=== PATIENT | female | born 1930 | race African-American/Black ===

== ENCOUNTER 2020-04-16 16:17 | Inpatient (IN) | payer MEDICARE ==
[~2020-04-16] VITALS: Ht 152.4 cm; Wt 72.0 kg
[~2020-04-16 16:17] MED LIST: CHOL2000 PO; CITA10TA4 PO
--- NOTE | 2020-04-16 17:22 | PHYS DOC ---
Past Medical History Past Medical History: Hypertension, Other Additional Past Medical Histor: Alzheimers, Borderline DM Past Surgical History: Other Additional Past Surgical Histo: unkown Smoking Status: Never Smoker Alcohol Use: None Drug Use: None General Adult EDM: Chief Complaint: ALTERED MENTAL STATUS HPI: HPI: The history was obtained from the patient's son. Patient is a 89-year-old female with PMH hypertension who presents with a chief complaint of altered mental status. Son states he checked on the patient approximate 4 hours prior to arrival. He states he found her at home slumped over her bed railing. He states that the daughter does live with the patient 07/03. He states the patient's last known well was approximately 10 hours prior to arrival. He is unsure whether she had any falls or head trauma but does note some right maxillary swelling. States that she seems more confused than normal. He denies history of urinary tract infections. States she only takes medicine for high blood pressure. States she does normally ambulate on her own. Denies fevers. Denies cough. Denies known exposure to coronavirus. Denies any history of stroke. States that she was able to move both of her legs at the house so he is low suspicion for hip fracture. No other complaints per patient son at this time. Review of Systems: Review of Systems: Constitutional: Denies fever or chills. [] Eyes: Denies change in visual acuity. [] HENT: Denies nasal congestion or sore throat. [] Respiratory: Denies cough or shortness of breath. [] Cardiovascular: Denies chest pain or edema. [] GI: Denies abdominal pain, nausea, vomiting, bloody stools or diarrhea. [] : Denies dysuria. [] Musculoskeletal: Denies back pain or joint pain. [] Integument: Denies rash. [] Neurologic: Positive for confusion Endocrine: Denies polyuria or polydipsia. [] Lymphatic: Denies swollen glands. [] Psychiatric: Denies depression or anxiety. [] Heart Score: HEART Score for Chest Pain: HEART Score for Chest Pain Response (Comments) Value History Slighlty/Non-Suspicious 0 ECG Nonspecific Repolarizatio 1 Age > 65 2 Risk Factors 1 or 2 Risk Factors 1 Troponin >1-<3x Normal Limit 1 Total 5 Risk Factors: Risk Factors: DM, Current or recent (<one month) smoker, HTN, HLP, family history of CAD, obesity. Risk Scores: Score 0 - 3: 2.5% MACE over next 6 weeks - Discharge Home Score 4 - 6: 20.3% MACE over next 6 weeks - Admit for Clinical Observation Score 7 - 10: 72.7% MACE over next 6 weeks - Early Invasive Strategies Allergies: Allergies: Allergies Coded Allergies Type Severity Reaction Last Updated Verified No Known Drug Allergies 07/19/15 No Physical Exam: PE: Constitutional: Well developed, well nourished, no acute distress, non-toxic appearance. [] HENT: Normocephalic, atraumatic, bilateral external ears normal, oropharynx moist, no oral exudates, nose normal. [] Eyes: PERRLA, EOMI, conjunctiva normal, no discharge. [] Neck: Normal range of motion, no tenderness, supple, no stridor. [] Cardiovascular:Heart rate regular rhythm, no murmur [] Lungs & Thorax: Bilateral breath sounds clear to auscultation [] Abdomen:, soft, no tenderness, no masses, no pulsatile masses. [] Skin: Warm, dry, no erythema, no rash. [] Back: No tenderness, no CVA tenderness. [] Extremities: No tenderness, no cyanosis, no clubbing, ROM intact, no edema. [] Neurologic: Alert. Oriented to person only. Baseline per son no aphasia, dysarthria, or neglect. GCS 14. Pupils 3 mm briskly reactive b/l. No APD present. Cranial nerves 2-12 grossly intact; no facial asymmetry present, tongue midline, shoulder shrugging strength intact. Strength 4/5 and symmetric throughout. Light touch sensation intact throughout. Cerebellar testing appropriate without evidence of dysdiadochokinesia. DTR's 2+ in all 4 extremities. Negative pronator drift bilaterally. Gait deferred Psychologic: Affect normal, judgement normal, mood normal. [] Current Patient Data: Vital Signs: Vital Signs Date Time Temp Pulse Resp B/P (MAP) Pulse Ox O2 Delivery O2 Flow Rate FiO2 04/16/20 16:40 98.5 72 18 183/84 (117) 96 Room Air 98.5 EKG: EKG: EKG consistent with normal sinus rhythm. Ventricular rate is 74 bpm. [place] normal. Flipped T waves noted in the precordial leads. No ST segment elevation appreciated. No elevation in aVR. Similar to previous EKG from July 19, 2015. [] Radiology/Procedures: Radiology/Procedures: [] Course & Med Decision Making: Course & Med Decision Making Pertinent Labs and Imaging studies reviewed. (See chart for details) Patient is an 89-year-old female presents with chief complaint of altered mental status. Initial vital signs grossly unremarkable. Exam noted above. EKG without acute ischemic changes. Patient does have an elevated troponin in the setting of normal kidney function. No previous for comparison. EKG does not show any STEMI criteria. This could be NSTEMI related. Cardiology is been consulted. Heparinization will be administered given she has no anemia and a detectable troponin. Aspirin administered. She will require hospitalization for further work-up. Al Disclaimer: Al Disclaimer: This electronic medical record was generated, in whole or in part, using a voice recognition dictation system. Departure Departure Impression: Primary Impression: Altered mental status Qualified Codes: R41.82 - Altered mental status, unspecified Additional Impression: Elevated troponin Disposition: ADMITTED INPATIENT Condition: STABLE Referrals: Liliane PIKN MD (PCP) Justicifation of Admission Dx: Justifications for Admission: Justification of Admission Dx: Yes Hypertension: [place] Worsening of Sym DAGO BEASLEY DO Apr 16, 2020 17:22
[2020-04-16 17:26] LABS: BASO # 0.1 x10^3/uL (0.0-0.2); BASO % 1 % (0-3); EOS % 0 % (0-3); HEMOGLOBIN 14.1 g/dL (12.0-15.5); LYMPH # 1.2 x10^3/uL (1.0-4.8); LYMPH % 12 % (24-48); MEAN CORPUSCULAR HEMOGLOBIN 31 pg (25-35); MEAN CORPUSCULAR HGB CONC 34 g/dL (31-37); MEAN CORPUSCULAR VOLUME 93 fL (79-100); MONO # 0.9 x10^3/uL (0.0-1.1); MONO % 9 % (0-9); NEUT % 78 % (31-73); PLATELET COUNT 214 x10^3/uL (140-400); RED BLOOD COUNT 4.52 x10^6/uL (3.50-5.40); RED CELL DISTRIBUTION WIDTH 13.8 % (11.5-14.5); WHITE BLOOD COUNT 10.2 x10^3/uL (4.0-11.0)
[2020-04-16 17:43] LABS: BILIRUBIN,URINE NEGATIVE (NEG); CLARITY,URINE CLEAR; COLOR,URINE YELLOW; NITRITE,URINE NEGATIVE (NEG); PH,URINE 5.5 (<5.0-8.0); PROTEIN,URINE NEGATIVE (NEG-TRACE); UROBILINOGEN,URINE 0.2 mg/dL (0.2 mg/dL)
[2020-04-16 17:50] LABS: BACTERIA,URINE FEW /HPF (0-FEW); SQUAMOUS EPITHELIAL CELL,UR MOD /LPF; WBC,URINE OCC /HPF (0-4)
[2020-04-16 17:52] LABS: RBC,URINE RARE /HPF (0-2)
--- NOTE | 2020-04-16 17:56 | RAD ---
Exam: Chest one view INDICATION: Altered mental status TECHNIQUE: Frontal view of the chest Comparisons: 07/19/2015 FINDINGS: The cardiomediastinal silhouette and pulmonary vessels are within normal limits. The lung and pleural spaces are clear. IMPRESSION: No acute cardiopulmonary process. Electronically signed by: Hawk Alexandre MD (04/16/2020 5:54 PM) [id number]
[2020-04-16 18:04] LABS: CALCIUM 8.2 mg/dL (8.5-10.1); GFR 63.5; POTASSIUM 3.4 mmol/L (3.5-5.1)
[2020-04-16 18:10] LABS: ALBUMIN 3.1 g/dL (3.4-5.0); ALBUMIN/GLOBULIN RATIO 0.7 (1.0-1.7); TOTAL BILIRUBIN 0.3 mg/dL (0.2-1.0); TOTAL PROTEIN 7.4 g/dL (6.4-8.2)
--- NOTE | 2020-04-16 18:28 | RAD ---
CT head without contrast: Reason for examination: Altered mental status. Comparison is made to previous study dated 04/08/2011. Axial images were obtained through the brain. No contrast was administered. Reconstruction was performed in and coronal plane. Exposure: One or more of the following individualized dose reduction techniques were utilized for this examination: 1. Automated exposure control 2. Adjustment of the mA and/or kV according to patient size 3. Use of iterative reconstruction technique. Ventricular systems are symmetric but mildly prominent consistent with the patient's advanced age and cerebral atrophy. No midline shift is seen. There are moderate patchy deep white matter changes in the frontal and parietal lobes consistent with microvascular ischemia. There is a small chronic appearing lacunar infarct in the left thalamus. No acute infarcts, masses or edema are seen. No abnormalities of seen at the orbits. 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 Remaining paranasal sinuses appear to be relatively clear. Mastoid air cells are clear. No acute abnormality seen in the calvarium. IMPRESSION: Moderate microvascular ischemic changes in the frontal and parietal lobes. Small chronic appearing lacunar infarct in the left thalamus. No acute intracranial abnormality evident. Electronically signed by: Vanna King MD (04/16/2020 6:25 PM) MARIANNE
[2020-04-16] MEDS ORDERED: IV NORMAL SALINE 1000ML BAG 1,000 ML IV ONE (19:30)
[2020-04-16] MEDS ORDERED: ASPIRIN CHEWABLE 81 MG TABLET. PO ONE (22:30)
[2020-04-16] MEDS ORDERED: HEPARIN for IV BOLUS 10,000 UNIT/10 ML VIAL. IV ONE (22:30)
[2020-04-16 23:00] VITALS: BP 178/62
[2020-04-16] MEDS ORDERED: OMEP20TA8 PO (23:34)
[2020-04-16] MEDS ORDERED: AMLO5TAB10 PO (23:34)
[2020-04-16] MEDS ORDERED: IBUP-1007 PO (23:34)
--- NOTE | 2020-04-17 | NUR ---
Patient, Cristela Larson, admitted to [id number], accompanied by son , ALTRICIA, A/O, drowsy, plan of care discussed with pt and son, bed alarm engaged, son took wallet home with him, left cane and shoes.
--- NOTE | 2020-04-17 | NUR ---
Patient to floor with reported 2nd bag of ns bolus, not noted to have been scanned, but is infusing/bolusing
[2020-04-17 03:00] VITALS: BP 169/71
--- NOTE | 2020-04-17 06:09 | EKG ---
[facility] [address] [place] [address] Test Date: 2020-04-16 Test Time: 17:03:24 Pat Name: JAYCE BROWN Department: Room: Gender: F Marketing Officer: : 1930 Requested By: DAGO BEASLEY Order Number: [id number] Reading MD: Measurements Intervals [place] Rate: 74 P: 22 TN: 144 QRS: 14 QRSD: 74 T: 114 QT: 412 QTc: 458 Interpretive Statements SINUS RHYTHM LVH WITH REPOLARIZATION ABNORMALITY ABNORMAL ECG RI6.02 No previous ECG available for comparison
[2020-04-17 07:00] VITALS: BP 181/75
--- NOTE | 2020-04-17 08:55 | PDOC1 ---
History and Physical Date of Admission Date of Admission DATE: 04/17/20 TIME: 08:53 Identification/Chief Complaint Chief Complaint Altered mental status Source Source: Caregiver, Chart review, Patient History of Present Illness History of Present Illness Ms Larson is a 89 yo F w/ PMHx hypertension, Alzheimers dementia, prior left thalamic CVA who presents to [facility] ED on 04/16 with a chief complaint of altered mental status per son. Son states he checked on the patient approximate 4 hours prior to arrival. He states he found her at home slumped over her bed railing. He states that the daughter does live with the patient 07/03. He states the patient's last known well was approximately 10 hours prior to arrival. He is unsure whether she had any falls or head trauma but does note some right maxillary swelling. States that she seems more confused than normal, but did not have any pain complaints. He denies history of urinary tract infections. States she only takes medicine for high blood pressure. States she does normally ambulate on her own. Denies fevers. Denies cough. Denies known exposure to coronavirus. Denies any history of stroke. No other complaints per patient son at this time. EKG appears normal sinus rhythm. Ventricular rate is 74 bpm. [place] normal. Flipped T waves noted in the precordial leads. No ST segment elevation appreciated. No elevation in aVR. Similar to previous EKG from July 19, 2015. Labs significant for WBC 10.2, Hb 14.1, platelets 214, lactic acid 2.3, NA 140, K3.4, BUN 9, CR 1, glucose 129, CK 676, BNP 561, albumin 3.1, troponin 0.127. UA bland Admitted for further treatment. Past Medical History CENTRAL NERVOUS SYSTEM: CVA, Dementia Past Surgical History Past Surgical History: Other Family History Family History: High Cholestrol, Hypertension Current Problem List Problem List Problems Medical Problems: (1) Altered mental status Status: Acute (2) Elevated troponin Status: Acute Current Medications Current Medications Current Medications Sodium Chloride 1,000 ml @ 1,000 mls/hr 1X ONCE IV Last administered on 04/16/20at 19:30; Start 04/16/20 at 19:30; Stop 04/16/20 at 20:29; Status DC Heparin Sodium (Porcine) (Heparin Sodium) 4,000 unit 1X ONCE IV Last administered on 04/17/20at 02:07; Start 04/16/20 at 22:30; Stop 04/16/20 at 22:33; Status DC Aspirin (Aspirin Chewable) 324 mg 1X ONCE PO Last administered on 04/17/20at 02:07; Start 04/16/20 at 22:30; Stop 04/16/20 at 22:33; Status DC Active Scripts Active Reported Omeprazole 20 Mg Tablet.dr 1 Tab PO DAILY Ibuprofen 600 Mg Tablet 600 Mg PO DAILY PRN Amlodipine Besylate 5 Mg Tablet 5 Mg PO DAILY Vitamin D (Cholecalciferol (Vitamin D3)) 2,000 Unit Capsule 5,000 Unit PO Allergies Allergies: Coded Allergies: No Known Drug Allergies (Unverified , 07/19/15) ROS Review of System Unable to obtain due to altered mental status also with dementia, not verbally interactive Physical Exam General: Cooperative, No acute distress HEENT: Atraumatic, PERRLA, EOMI, Mucous membr. moist/pink Lungs: Clear to auscultation, Normal air movement Heart: S1S2, RRR, no thrills, no rubs, no gallops, no murmurs Rectal Exam: not examined Extremities: No clubbing, No cyanosis, No edema, Normal pulses, No tenderness/swelling Skin: No rashes, No breakdown, No significant lesion Neuro: Normal speech, Strength at 5/5 X4 ext, Normal tone, Sensation intact, Cranial nerves 3-12 NL, Reflexes 2+ Psych/Mental Status: Other (Confused) Vitals Vitals Vital Signs Date Time Temp Pulse Resp B/P (MAP) Pulse Ox O2 Delivery O2 Flow Rate FiO2 04/17/20 03:00 98.6 69 169/71 (103) 99 98.6 04/16/20 22:48 18 Room Air Labs Labs Laboratory Tests Test 04/16/20 17:15 04/16/20 17:28 04/16/20 17:40 04/16/20 23:30 White Blood Count 10.2 x10^3/uL (4.0-11.0) Red Blood Count 4.52 x10^6/uL (3.50-5.40) Hemoglobin 14.1 g/dL (12.0-15.5) Hematocrit 42.0 % (36.0-47.0) Mean Corpuscular Volume 93 fL (79-100) Mean Corpuscular Hemoglobin 31 pg (25-35) Mean Corpuscular Hemoglobin Concent 34 g/dL (31-37) Red Cell Distribution Width 13.8 % (11.5-14.5) Platelet Count 214 x10^3/uL (140-400) Neutrophils (%) (Auto) 78 % (31-73) Lymphocytes (%) (Auto) 12 % (24-48) Monocytes (%) (Auto) 9 % (0-9) Eosinophils (%) (Auto) 0 % (0-3) Basophils (%) (Auto) 1 % (0-3) Neutrophils # (Auto) 8.0 x10^3/uL (1.8-7.7) Lymphocytes # (Auto) 1.2 x10^3/uL (1.0-4.8) Monocytes # (Auto) 0.9 x10^3/uL (0.0-1.1) Eosinophils # (Auto) 0.0 x10^3/uL (0.0-0.7) Basophils # (Auto) 0.1 x10^3/uL (0.0-0.2) Lactic Acid Level 2.3 mmol/L (0.4-2.0) 1.9 mmol/L (0.4-2.0) Urine Collection Type U cath Urine Color Yellow Urine Clarity Clear Urine pH 5.5 (<5.0-8.0) Urine Specific [place] 1.010 (1.000-1.030) Urine Protein Negative mg/dL (NEG-TRACE) Urine Glucose (UA) Negative mg/dL (NEG) Urine Ketones (Stick) Negative mg/dL (NEG) Urine Blood Moderate (NEG) Urine Nitrite Negative (NEG) Urine Bilirubin Negative (NEG) Urine Urobilinogen Dipstick 0.2 mg/dL (0.2 mg/dL) Urine Leukocyte Esterase Negative (NEG) Urine RBC Rare /HPF (0-2) Urine WBC Occ /HPF (0-4) Urine Squamous Epithelial Cells Mod /LPF Urine Transitional Epithelial Cells Occ /LPF Urine Bacteria Few /HPF (0-FEW) Urine Mucus Marked /LPF Sodium Level 140 mmol/L (136-145) Potassium Level 3.4 mmol/L (3.5-5.1) Chloride Level 105 mmol/L (98-107) Carbon Dioxide Level 27 mmol/L (21-32) Anion Gap 8 (6-14) Blood Urea Nitrogen 9 mg/dL (7-20) Creatinine 1.0 mg/dL (0.6-1.0) Estimated GFR (Cockcroft-Gault) 63.5 BUN/Creatinine Ratio 9 (6-20) Glucose Level 129 mg/dL (70-99) Calcium Level 8.2 mg/dL (8.5-10.1) Total Bilirubin 0.3 mg/dL (0.2-1.0) Aspartate Amino Transf (AST/SGOT) 30 U/L (15-37) Alanine Aminotransferase (ALT/SGPT) 23 U/L (14-59) Alkaline Phosphatase 51 U/L (46-116) Creatine Kinase 676 U/L (26-192) Troponin I Quantitative 0.127 ng/mL (0.000-0.055) 0.114 ng/mL (0.000-0.055) LB-Thj-Q-Type Natriuretic Peptide 561 pg/mL (0-449) Total Protein 7.4 g/dL (6.4-8.2) Albumin 3.1 g/dL (3.4-5.0) Albumin/Globulin Ratio 0.7 (1.0-1.7) Lipase 69 U/L (73-393) Test 04/17/20 03:00 04/17/20 04:15 Troponin I Quantitative 0.109 ng/mL (0.000-0.055) 0.099 ng/mL (0.000-0.055) Laboratory Tests Test 04/16/20 17:15 04/16/20 17:28 04/16/20 17:40 04/16/20 23:30 White Blood Count 10.2 x10^3/uL (4.0-11.0) Red Blood Count 4.52 x10^6/uL (3.50-5.40) Hemoglobin 14.1 g/dL (12.0-15.5) Hematocrit 42.0 % (36.0-47.0) Mean Corpuscular Volume 93 fL (79-100) Mean Corpuscular Hemoglobin 31 pg (25-35) Mean Corpuscular Hemoglobin Concent 34 g/dL (31-37) Red Cell Distribution Width 13.8 % (11.5-14.5) Platelet Count 214 x10^3/uL (140-400) Neutrophils (%) (Auto) 78 % (31-73) Lymphocytes (%) (Auto) 12 % (24-48) Monocytes (%) (Auto) 9 % (0-9) Eosinophils (%) (Auto) 0 % (0-3) Basophils (%) (Auto) 1 % (0-3) Neutrophils # (Auto) 8.0 x10^3/uL (1.8-7.7) Lymphocytes # (Auto) 1.2 x10^3/uL (1.0-4.8) Monocytes # (Auto) 0.9 x10^3/uL (0.0-1.1) Eosinophils # (Auto) 0.0 x10^3/uL (0.0-0.7) Basophils # (Auto) 0.1 x10^3/uL (0.0-0.2) Lactic Acid Level 2.3 mmol/L (0.4-2.0) 1.9 mmol/L (0.4-2.0) Urine Collection Type U cath Urine Color Yellow Urine Clarity Clear Urine pH 5.5 (<5.0-8.0) Urine Specific [place] 1.010 (1.000-1.030) Urine Protein Negative mg/dL (NEG-TRACE) Urine Glucose (UA) Negative mg/dL (NEG) Urine Ketones (Stick) Negative mg/dL (NEG) Urine Blood Moderate (NEG) Urine Nitrite Negative (NEG) Urine Bilirubin Negative (NEG) Urine Urobilinogen Dipstick 0.2 mg/dL (0.2 mg/dL) Urine Leukocyte Esterase Negative (NEG) Urine RBC Rare /HPF (0-2) Urine WBC Occ /HPF (0-4) Urine Squamous Epithelial Cells Mod /LPF Urine Transitional Epithelial Cells Occ /LPF Urine Bacteria Few /HPF (0-FEW) Urine Mucus Marked /LPF Sodium Level 140 mmol/L (136-145) Potassium Level 3.4 mmol/L (3.5-5.1) Chloride Level 105 mmol/L (98-107) Carbon Dioxide Level 27 mmol/L (21-32) Anion Gap 8 (6-14) Blood Urea Nitrogen 9 mg/dL (7-20) Creatinine 1.0 mg/dL (0.6-1.0) Estimated GFR (Cockcroft-Gault) 63.5 BUN/Creatinine Ratio 9 (6-20) Glucose Level 129 mg/dL (70-99) Calcium Level 8.2 mg/dL (8.5-10.1) Total Bilirubin 0.3 mg/dL (0.2-1.0) Aspartate Amino Transf (AST/SGOT) 30 U/L (15-37) Alanine Aminotransferase (ALT/SGPT) 23 U/L (14-59) Alkaline Phosphatase 51 U/L (46-116) Creatine Kinase 676 U/L (26-192) Troponin I Quantitative 0.127 ng/mL (0.000-0.055) 0.114 ng/mL (0.000-0.055) DT-Voy-N-Type Natriuretic Peptide 561 pg/mL (0-449) Total Protein 7.4 g/dL (6.4-8.2) Albumin 3.1 g/dL (3.4-5.0) Albumin/Globulin Ratio 0.7 (1.0-1.7) Lipase 69 U/L (73-393) Test 04/17/20 03:00 04/17/20 04:15 Troponin I Quantitative 0.109 ng/mL (0.000-0.055) 0.099 ng/mL (0.000-0.055) Images Images CT head: Ventricular systems are symmetric but mildly prominent consistent with the patient's advanced age and cerebral atrophy. No midline shift is seen. There are moderate patchy deep white matter changes in the frontal and parietal lobes consistent with microvascular ischemia. There is a small chronic appearing lacunar infarct in the left thalamus. No acute infarcts, masses or edema are seen. No abnormalities of seen at the orbits. 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 Remaining paranasal sinuses appear to be relatively clear. Mastoid air cells are clear. No acute abnormality seen in the calvarium. IMPRESSION: Moderate microvascular ischemic changes in the frontal and parietal lobes. Small chronic appearing lacunar infarct in the left thalamus. No acute intracranial abnormality evident. CXR: The cardiomediastinal silhouette and pulmonary vessels are within normal limits. The lung and pleural spaces are clear. IMPRESSION: No acute cardiopulmonary process. VTE Prophylaxis Ordered VTE Prophylaxis Devices: Yes VTE Pharmacological Prophylaxi: Yes Assessment/Plan Assessment/Plan A/P: Acute metabolic encephalopathy - likely from metabolic derangement, no UTI or other abnormalities Elevated troponin - likely demand ischemia from above. Will trend. Cardiology consulted in ED. No STEMI. On heparin GTT Lactic acid elevated - will trend Hypokalemia - will correct, check mag Elevated CPK - will hydrate Remote left thalamic CVA - family not aware of prior CVA Alzheimers dementia - not on meds HTN - cont home meds FEN - Cardiac diet PPX - Heparin DNR/DNI Dispo - inpatient for above Justifications for Admission Other Justification VIRIDIANA FUNEZ MD Apr 17, 2020 08:55
--- NOTE | 2020-04-17 09:15 | PDOC2 ---
CARDIAC CONSULT DATE OF CONSULT Date of Consult DATE: 04/17/20 TIME: 09:12 REASON FOR CONSULT Reason for Consult: Elevated troponin REFERRING PHYSICIAN Referring Physician: Jojo SOURCE Source: Caregiver (son), Chart review, Patient HISTORY OF PRESENT ILLNESS HISTORY OF PRESENT ILLNESS This is a pleasant 89 yo female admitted for noted increasing confusion. She is alert and oriented to self and place and pleasant. She appears back to her baseline and has Alzheimers but unclear to what degree. I discussed this with his son whose daughter helps takes care of her. They notice that her confusion got worse and also noted at one point the other day that she may have fell and hit her right face on something as she was noted with bruising. It is unclear if she truly and how hard she fell and if she passed out. She was seen trying to pour her drink to her food. He thought she has another UTI. No hx of arrhythmias or CADs. She does have DM2 but is in no medications and was stopped a while back. He could not ascertain her hydration and likely was dehydrated to begin with. No complains of chest pain, SOA and has not been seen touching her chest or any indications of pain. PAST MEDICAL HISTORY Cardiovascular: HTN Pulmonary: Asthma CENTRAL NERVOUS SYSTEM: Dementia (alzheimers) GI: GERD, Other (H pylori) Psych: Depression Musculoskeletal: Osteoarthritis, Other (Vit D deficicny) ENT: Other (glaucoma) Renal/: UTI Endocrine: Diabetes (2 and diet controlled) PAST SURGICAL HISTORY Past Surgical History: Cataract Removal, Hysterectomy FAMILY HISTORY Family History noncontributory to CV SOCIAL HISTORY Smoke: No ALCOHOL: none Drugs: None Lives: with Family CURRENT MEDICATIONS CURRENT MEDICATIONS Current Medications Medications (Trade) Dose Ordered Sig/Nubia Route PRN Reason Start Time Stop Time Status Last Admin Dose Admin Sodium Chloride 1,000 ml @ 1,000 mls/hr 1X ONCE IV 04/16/20 19:30 04/16/20 20:29 DC 04/16/20 19:30 Heparin Sodium (Porcine) (Heparin Sodium) 4,000 unit 1X ONCE IV 04/16/20 22:30 04/16/20 22:33 DC 04/17/20 02:07 Aspirin (Aspirin Chewable) 324 mg 1X ONCE PO 04/16/20 22:30 04/16/20 22:33 DC 04/17/20 02:07 ALLERGIES ALLERGIES: Coded Allergies: No Known Drug Allergies (Unverified , 07/19/15) ROS Review of System 14 point ROS evaluated with pertinent positives noted per HPI PHYSICAL EXAM General: Alert, Oriented X3, Cooperative, No acute distress HEENT: Atraumatic, Mucous membr. moist/pink, Other (right facial ecchymoses) Lungs: Clear to auscultation, Normal air movement Heart: Regular rate (SR no ectopies), Normal S1, Normal S2, Other (3/6 systolic murmur to LLS border) Abdomen: Soft, No tenderness Extremities: No cyanosis, No edema Skin: No breakdown, No significant lesion Neuro: Normal speech, Sensation intact Psych/Mental Status: Mental status NL, Mood NL MUSCULOSKELETAL: Osteoarthritic changes both hands VITALS/I&O VITALS/I&O: Vital Signs Date Time Temp Pulse Resp B/P (MAP) Pulse Ox O2 Delivery O2 Flow Rate FiO2 04/17/20 07:00 98.2 70 18 181/75 (110) 94 Room Air 98.2 I & O 04/16/20 04/16/20 04/17/20 15:00 23:00 07:00 Intake Total 0 ml Balance 0 ml LABS Lab: Laboratory Tests Test 04/16/20 17:15 04/16/20 17:28 04/16/20 17:40 04/16/20 23:30 White Blood Count 10.2 x10^3/uL (4.0-11.0) Red Blood Count 4.52 x10^6/uL (3.50-5.40) Hemoglobin 14.1 g/dL (12.0-15.5) Hematocrit 42.0 % (36.0-47.0) Mean Corpuscular Volume 93 fL (79-100) Mean Corpuscular Hemoglobin 31 pg (25-35) Mean Corpuscular Hemoglobin Concent 34 g/dL (31-37) Red Cell Distribution Width 13.8 % (11.5-14.5) Platelet Count 214 x10^3/uL (140-400) Neutrophils (%) (Auto) 78 % (31-73) H Lymphocytes (%) (Auto) 12 % (24-48) L Monocytes (%) (Auto) 9 % (0-9) Eosinophils (%) (Auto) 0 % (0-3) Basophils (%) (Auto) 1 % (0-3) Neutrophils # (Auto) 8.0 x10^3/uL (1.8-7.7) H Lymphocytes # (Auto) 1.2 x10^3/uL (1.0-4.8) Monocytes # (Auto) 0.9 x10^3/uL (0.0-1.1) Eosinophils # (Auto) 0.0 x10^3/uL (0.0-0.7) Basophils # (Auto) 0.1 x10^3/uL (0.0-0.2) Lactic Acid Level 2.3 mmol/L (0.4-2.0) H 1.9 mmol/L (0.4-2.0) Urine Collection Type U cath Urine Color Yellow Urine Clarity Clear Urine pH 5.5 (<5.0-8.0) Urine Specific [place] 1.010 (1.000-1.030) Urine Protein Negative mg/dL (NEG-TRACE) Urine Glucose (UA) Negative mg/dL (NEG) Urine Ketones (Stick) Negative mg/dL (NEG) Urine Blood Moderate (NEG) Urine Nitrite Negative (NEG) Urine Bilirubin Negative (NEG) Urine Urobilinogen Dipstick 0.2 mg/dL (0.2 mg/dL) Urine Leukocyte Esterase Negative (NEG) Urine RBC Rare /HPF (0-2) Urine WBC Occ /HPF (0-4) Urine Squamous Epithelial Cells Mod /LPF Urine Transitional Epithelial Cells Occ /LPF Urine Bacteria Few /HPF (0-FEW) Urine Mucus Marked /LPF Sodium Level 140 mmol/L (136-145) Potassium Level 3.4 mmol/L (3.5-5.1) L Chloride Level 105 mmol/L (98-107) Carbon Dioxide Level 27 mmol/L (21-32) Anion Gap 8 (6-14) Blood Urea Nitrogen 9 mg/dL (7-20) Creatinine 1.0 mg/dL (0.6-1.0) Estimated GFR (Cockcroft-Gault) 63.5 BUN/Creatinine Ratio 9 (6-20) Glucose Level 129 mg/dL (70-99) H Calcium Level 8.2 mg/dL (8.5-10.1) L Total Bilirubin 0.3 mg/dL (0.2-1.0) Aspartate Amino Transferase (AST) 30 U/L (15-37) Alanine Aminotransferase (ALT) 23 U/L (14-59) Alkaline Phosphatase 51 U/L (46-116) Creatine Kinase 676 U/L (26-192) H Troponin I Quantitative 0.127 ng/mL (0.000-0.055) 0.114 ng/mL (0.000-0.055) SV-Vbu-N-Type Natriuretic Peptide 561 pg/mL (0-449) H Total Protein 7.4 g/dL (6.4-8.2) Albumin 3.1 g/dL (3.4-5.0) L Albumin/Globulin Ratio 0.7 (1.0-1.7) L Lipase 69 U/L (73-393) L Test 04/17/20 03:00 04/17/20 04:15 Troponin I Quantitative 0.109 ng/mL (0.000-0.055) 0.099 ng/mL (0.000-0.055) Laboratory Tests 04/16/20 17:15 Laboratory Tests 04/16/20 17:40 ASSESSMENT/PLAN ASSESSMENT/PLAN 1. Possible fall and syncope: noted with right facial contusion. unclear as pt was discovered next to furniture. 2. Rhabdomyolysis: due to above 3. Elevated troponin no cardiac symptoms mild at 0.1 EKG SR without acute changes, possibly type 2 4. Metabolic encephalopathy with underlying alzheimers dementia : mentation back to baseline 5. Accelerated HTN 6. Lactic acidosis: possibly from dehydration/rhabdo 7. Hx of DM2: diet controlled Recommendations TTE CBC, BMP, TSH Resume home norvasc. IVF. Maintain hydration adequacy. Replace K I discussed with her son in regards to cardiac workup moving forward. Her baseline function remains adequate for her age accdg to her son and is wanting further workup for her mother. Will obtain outpt stress test and also MCOT for 2 weeks then follow up in our office. Follow up with Dr. Keith on May 15 at 9:30 AM ASHWINI GAMBOA APRN Apr 17, 2020 09:15
[2020-04-17 10:33] LABS: BASO # 0.1 x10^3/uL (0.0-0.2); BASO % 1 % (0-3); EOS % 0 % (0-3); HEMATOCRIT 38.5 % (36.0-47.0); HEMOGLOBIN 12.9 g/dL (12.0-15.5); LYMPH # 1.4 x10^3/uL (1.0-4.8); LYMPH % 20 % (24-48); MEAN CORPUSCULAR HEMOGLOBIN 31 pg (25-35); MEAN CORPUSCULAR HGB CONC 34 g/dL (31-37); MEAN CORPUSCULAR VOLUME 93 fL (79-100); MONO # 0.8 x10^3/uL (0.0-1.1); MONO % 12 % (0-9); NEUT % 68 % (31-73); PLATELET COUNT 182 x10^3/uL (140-400); RED BLOOD COUNT 4.15 x10^6/uL (3.50-5.40); RED CELL DISTRIBUTION WIDTH 14.1 % (11.5-14.5); WHITE BLOOD COUNT 7.3 x10^3/uL (4.0-11.0)
[2020-04-17 10:49] LABS: CALCIUM 7.8 mg/dL (8.5-10.1); CREATININE 0.9 mg/dL (0.6-1.0); GFR 71.7; POTASSIUM 3.4 mmol/L (3.5-5.1)
[2020-04-17 11:00] VITALS: BP 137/65
[2020-04-17 11:12] LABS: CHOLESTEROL/HDL RATIO 1.8
--- NOTE | 2020-04-17 12:36 | EKG ---
[facility] [address] [place] [address] Test Date: 2020-04-17 Test Time: 12:16:30 Pat Name: JAYCE BROWN Department: Room: 512 1 Gender: F Tree Wrapper: SHERRY : 1930 Requested By: DAGO BEASLEY Order Number: [id number] Reading MD: Dominic Culver MD Measurements Intervals [place] Rate: 62 P: 27 AL: 148 QRS: 4 QRSD: 74 T: 105 QT: 446 QTc: 455 Interpretive Statements SINUS RHYTHM T ABNORMALITY IN ANTERIOR LEADS Electronically Signed On 04-17-2020 13:22:32 CDT by Dominic Culevr MD
[2020-04-17] MEDS ORDERED: IV 1/2 NORMAL SALINE 1,000 ML IV ONE (12:45)
--- NOTE | 2020-04-17 13:09 | NUR ---
SW following. Spoke with RN and reviewed chart. Pt from home with care from a granddaughter who is a HOME SECURITY PROFESSIONAL per RN. Pt admitted r/t AMS. Pt on room air and oral medications. PT recommendation is for SNU. Family declining SNU per RN. LEVI LVM for the son Yann ([phone]) to coordinate care and discharge planning. LEVI following.
[2020-04-17] MEDS ORDERED: POTASSIUM CHLORIDE 20 MEQ TABLET.ER. PO ONE (13:15)
[2020-04-17 15:00] VITALS: BP 145/76
--- NOTE | 2020-04-17 15:03 | CARD ---
MR#: [id number] Date of Study: 04/17/2020 Ordering Physician: ASHWINI GAMBOA, Referring Physician: ASHWINI GAMBOA, Tech: Luna Marino JENNIE APPROVED REPORT EXAM: Two-dimensional and M-mode echocardiogram with Doppler and color Doppler. Other Information Quality : Good INDICATION Elevated Troponin 2D DIMENSIONS RVDd2.6 (2.9-3.5cm)Left Atrium(2D)3.7 (1.6-4.0cm) IVSd1.2 (0.7-1.1cm)Aortic Root(2D)2.7 (2.0-3.7cm) LVDd3.4 (3.9-5.9cm)LVOT Diameter2.0 (1.8-2.4cm) PWd1.0 (0.7-1.1cm)LVDs2.3 (2.5-4.0cm) FS (%) 31.6 %SV28.3 ml LVEF(%)60.8 (>50%) Aortic Valve AoV Peak Terrance.160.0cm/sAoV VTI29.9cm AO Peak GR.10.2mmHgLVOT Peak Terrance.158.1cm/s AO Mean GR.5mmHgAVA (VMAX)3.09cm2 TOYIN (VTI)3.00cm2 Mitral Valve MV E Klgzrcdg41.1cm/sMV DECEL UOCM495od MV A Mnqtuhix985.5cm/sE/A Ratio0.6 Pulmonary Vein S1 Htnxmpcf85.9cm/sD2 Gjfiwbyj04.1cm/s LEFT VENTRICLE The left ventricle is normal size. There is mild concentric left ventricular hypertrophy. The left ve ntricular systolic function is normal and the ejection fraction is within normal range. The Ejection Fraction is 60-65%. There is normal LV segmental wall motion. Transmitral Doppler flow pattern is Gra de I-abnormal relaxation pattern. RIGHT VENTRICLE The right ventricle is normal size. The right ventricular systolic function is normal. ATRIA The left atrium size is normal. The right atrium size is normal. The interatrial septum is intact wit h no evidence for an atrial septal defect or patent foramen ovale as noted on 2-D or Doppler imaging. AORTIC VALVE The aortic valve is mildly thickened but opens well. Doppler and Color Flow revealed no significant a ortic regurgitation. There is no significant aortic valvular stenosis. MITRAL VALVE The mitral valve is calcified but opens well. Mitral annular calcification is mild. There is no evide nce of mitral valve prolapse. There is no mitral valve stenosis. Doppler and Color-flow revealed trac e to mild mitral regurgitation. TRICUSPID VALVE The tricuspid valve is normal in structure and function. Doppler and Color Flow revealed trace tricus pid valve regurgitation. There is no tricuspid valve stenosis. PULMONIC VALVE The pulmonic valve is not well visualized. Doppler and Color Flow revealed mild pulmonic valvular reg urgitation. There is no pulmonic valvular stenosis. GREAT VESSELS The aortic root is normal in size. The ascending aorta is normal in size. The IVC is normal in size a nd collapses >50% with inspiration. PERICARDIAL EFFUSION There is no evidence of significant pericardial effusion. Critical Notification Critical Value: No <Conclusion> The left ventricle is normal size. The left ventricular systolic function is normal and the ejection fraction is within normal range. The Ejection Fraction is 60-65%. There is mild concentric left ventricular hypertrophy. Doppler and Color Flow revealed no significant aortic regurgitation. There is no significant aortic valvular stenosis. Doppler and Color-flow revealed trace to mild mitral regurgitation. Doppler and Color Flow revealed trace tricuspid valve regurgitation. Signed by : Jamie Keith MD Electronically Approved : 04/17/2020 15:03:03
[2020-04-17] MEDS: CHOLECALCIFEROL (VITAMIN D3) 5,000 UNIT CAPSULE PO SCH (15:35)
[2020-04-17] MEDS: amLODIPine BESYLATE 5 MG TABLET PO SCH (15:36)
[2020-04-17] MEDS: PANTOPRAZOLE 40 MG TABLET.DR. PO SCH (15:39)
[2020-04-17 19:00] VITALS: BP 156/76
[2020-04-17 23:00] VITALS: BP 156/76
[2020-04-18 03:00] VITALS: BP 131/88
[2020-04-18 07:15] VITALS: BP 126/80
--- NOTE | 2020-04-18 07:56 | PDOC ---
[facility] [facility] PROGRESS NOTE Date of Service DOS: DATE: 04/18/20 TIME: 07:54 Chief Complaint Chief Complaint A/P: Acute metabolic encephalopathy - likely from metabolic derangement, no UTI or other abnormalities Elevated troponin - likely demand ischemia from above. Will trend. Cardiology consulted in ED. No STEMI. On heparin GTT Lactic acid elevated - will trend Hypokalemia - will correct, check mag Elevated CPK - will hydrate Remote left thalamic CVA - family not aware of prior CVA Alzheimers dementia - not on meds HTN - cont home meds FEN - Cardiac diet PPX - Heparin DNR/DNI Dispo - inpatient for above History of Present Illness History of Present Illness Ms Larson is a 89 yo F w/ PMHx hypertension, Alzheimers dementia, prior left thalamic CVA who presents to [facility] ED on 04/16 with a chief complaint of altered mental status per son. Son states he checked on the patient approximate 4 hours prior to arrival. He states he found her at home slumped over her bed railing. He states that the daughter does live with the patient 07/03. He states the patient's last known well was approximately 10 hours prior to arrival. He is unsure whether she had any falls or head trauma but does note some right maxillary swelling. States that she seems more confused than normal, but did not have any pain complaints. He denies history of urinary tract infections. States she only takes medicine for high blood pressure. States she does normally ambulate on her own. Denies fevers. Denies cough. Denies known exposure to coronavirus. Denies any history of stroke. No other complaints per patient son at this time. EKG appears normal sinus rhythm. Ventricular rate is 74 bpm. [place] normal. Flipped T waves noted in the precordial leads. No ST segment elevation appreciated. No elevation in aVR. Similar to previous EKG from July 19, 2015. Labs significant for WBC 10.2, Hb 14.1, platelets 214, lactic acid 2.3, NA 140, K3.4, BUN 9, CR 1, glucose 129, CK 676, BNP 561, albumin 3.1, troponin 0.127. UA bland Admitted for further treatment. 04/17: Seen by cardiology, ECHO: The left ventricle is normal size. The left ventricular systolic function is normal and the ejection fraction is within normal range. The Ejection Fraction is 60-65%. There is mild concentric left ventricular hypertrophy. Doppler and Color Flow revealed no significant aortic regurgitation. There is no significant aortic valvular stenosis. Doppler and Color-flow revealed trace to mild mitral regurgitation. Doppler and Color Flow revealed trace tricuspid valve regurgitation. Troponin peaked, came down to 0.099. CK 1528, K 3.4. Working well with physical therapy. plan: Follow up with Dr. Keith on May 15 at 9:30 AM for outpatient stress testing. Vitals/I&O Vitals/I&O: Vital Signs Date Time Temp Pulse Resp B/P (MAP) Pulse Ox O2 Delivery O2 Flow Rate FiO2 04/18/20 03:00 98.7 88 18 131/88 (102) 91 Room Air 98.7 Physical Exam General: Alert, Oriented X3, Cooperative, No acute distress Heart: Regular rate (SR no ectopies), Normal S1, Normal S2, Other (3/6 systolic murmur to LLS border) Abdomen: Soft, No tenderness Extremities: No cyanosis, No edema Skin: No breakdown, No significant lesion Labs Labs: Laboratory Tests Test 04/17/20 10:10 04/17/20 21:10 04/18/20 07:43 White Blood Count 7.3 x10^3/uL (4.0-11.0) Red Blood Count 4.15 x10^6/uL (3.50-5.40) Hemoglobin 12.9 g/dL (12.0-15.5) Hematocrit 38.5 % (36.0-47.0) Mean Corpuscular Volume 93 fL (79-100) Mean Corpuscular Hemoglobin 31 pg (25-35) Mean Corpuscular Hemoglobin Concent 34 g/dL (31-37) Red Cell Distribution Width 14.1 % (11.5-14.5) Platelet Count 182 x10^3/uL (140-400) Neutrophils (%) (Auto) 68 % (31-73) Lymphocytes (%) (Auto) 20 % (24-48) Monocytes (%) (Auto) 12 % (0-9) Eosinophils (%) (Auto) 0 % (0-3) Basophils (%) (Auto) 1 % (0-3) Neutrophils # (Auto) 5.0 x10^3/uL (1.8-7.7) Lymphocytes # (Auto) 1.4 x10^3/uL (1.0-4.8) Monocytes # (Auto) 0.8 x10^3/uL (0.0-1.1) Eosinophils # (Auto) 0.0 x10^3/uL (0.0-0.7) Basophils # (Auto) 0.1 x10^3/uL (0.0-0.2) Sodium Level 144 mmol/L (136-145) Potassium Level 3.4 mmol/L (3.5-5.1) Chloride Level 109 mmol/L (98-107) Carbon Dioxide Level 29 mmol/L (21-32) Anion Gap 6 (6-14) Blood Urea Nitrogen 7 mg/dL (7-20) Creatinine 0.9 mg/dL (0.6-1.0) Estimated GFR (Cockcroft-Gault) 71.7 Glucose Level 91 mg/dL (70-99) Lactic Acid Level 1.0 mmol/L (0.4-2.0) Calcium Level 7.8 mg/dL (8.5-10.1) Magnesium Level 2.1 mg/dL (1.8-2.4) Creatine Kinase 1326 U/L (26-192) Triglycerides Level 33 mg/dL (0-150) Cholesterol Level 197 mg/dL (0-200) LDL Cholesterol, Calculated 79 mg/dL (0-100) VLDL Cholesterol, Calculated 7 mg/dL (0-40) Non-HDL Cholesterol Calculated 86 mg/dL (0-129) HDL Cholesterol 111 mg/dL (40-60) Cholesterol/HDL Ratio 1.8 Thyroid Stimulating Hormone (TSH) 0.468 uIU/mL (0.358-3.74) Glucose (Fingerstick) 119 mg/dL (70-99) 99 mg/dL (70-99) Assessment and Plan Assessmemt and Plan Problems Medical Problems: (1) Altered mental status Status: Acute (2) Elevated troponin Status: Acute Comment Review of Relevant I have reviewed the following items dennys (where applicable) has been applied. Medications: Current Medications Medications (Trade) Dose Ordered Sig/Nubia Route PRN Reason Start Time Stop Time Status Last Admin Dose Admin Sodium Chloride 1,000 ml @ 75 mls/hr 1X ONCE IV 04/17/20 12:45 04/18/20 02:04 DC 04/17/20 15:34 Amlodipine Besylate (Norvasc) 5 mg DAILY PO 04/17/20 13:00 04/17/20 15:36 Pantoprazole Sodium (Protonix) 40 mg DAILYAC PO 04/17/20 16:30 04/17/20 15:39 Vitamin D (Vitamin D3) 5,000 unit DAILY PO 04/17/20 13:00 04/17/20 15:35 Potassium Chloride (Klor-Con) 40 meq 1X ONCE PO 04/17/20 13:15 04/17/20 13:16 DC 04/17/20 15:37 Justifications for Admission Other Justification VIRIDIANA FUNEZ MD Apr 18, 2020 07:56
[2020-04-18 08:38] LABS: CALCIUM 8.3 mg/dL (8.5-10.1); CREATININE 0.9 mg/dL (0.6-1.0); GFR 71.7; MAGNESIUM 2.2 mg/dL (1.8-2.4); POTASSIUM 3.6 mmol/L (3.5-5.1)
[2020-04-18] MEDS: PANTOPRAZOLE 40 MG TABLET.DR. PO SCH (08:39)
[2020-04-18] MEDS: amLODIPine BESYLATE 5 MG TABLET PO SCH (08:39)
[2020-04-18] MEDS: CHOLECALCIFEROL (VITAMIN D3) 5,000 UNIT CAPSULE PO SCH (08:39)
--- NOTE | 2020-04-18 08:53 | PDOC ---
CARDIO Progress Notes Date and Time Date of Service 04/18/2020 Time of Evaluation 1100 Subjective Subjective: No Chest Pain, No shortness of breath, No Palpitations Vitals Vitals Vital Signs Date Time Temp Pulse Resp B/P (MAP) Pulse Ox O2 Delivery O2 Flow Rate FiO2 04/18/20 08:39 60 126/80 04/18/20 07:15 97.8 18 99 Room Air 97.8 Weight Weight [ ] Input and Output Intake and Output Intake and Output 04/18/20 07:00 # Voids 10 Laboratory Labs Laboratory Tests Test 04/17/20 10:10 04/17/20 21:10 04/18/20 07:25 04/18/20 07:43 White Blood Count 7.3 x10^3/uL (4.0-11.0) Red Blood Count 4.15 x10^6/uL (3.50-5.40) Hemoglobin 12.9 g/dL (12.0-15.5) Hematocrit 38.5 % (36.0-47.0) Mean Corpuscular Volume 93 fL (79-100) Mean Corpuscular Hemoglobin 31 pg (25-35) Mean Corpuscular Hemoglobin Concent 34 g/dL (31-37) Red Cell Distribution Width 14.1 % (11.5-14.5) Platelet Count 182 x10^3/uL (140-400) Neutrophils (%) (Auto) 68 % (31-73) Lymphocytes (%) (Auto) 20 % (24-48) Monocytes (%) (Auto) 12 % (0-9) Eosinophils (%) (Auto) 0 % (0-3) Basophils (%) (Auto) 1 % (0-3) Neutrophils # (Auto) 5.0 x10^3/uL (1.8-7.7) Lymphocytes # (Auto) 1.4 x10^3/uL (1.0-4.8) Monocytes # (Auto) 0.8 x10^3/uL (0.0-1.1) Eosinophils # (Auto) 0.0 x10^3/uL (0.0-0.7) Basophils # (Auto) 0.1 x10^3/uL (0.0-0.2) Sodium Level 144 mmol/L (136-145) 141 mmol/L (136-145) Potassium Level 3.4 mmol/L (3.5-5.1) 3.6 mmol/L (3.5-5.1) Chloride Level 109 mmol/L (98-107) 105 mmol/L (98-107) Carbon Dioxide Level 29 mmol/L (21-32) 31 mmol/L (21-32) Anion Gap 6 (6-14) 5 (6-14) Blood Urea Nitrogen 7 mg/dL (7-20) 8 mg/dL (7-20) Creatinine 0.9 mg/dL (0.6-1.0) 0.9 mg/dL (0.6-1.0) Estimated GFR (Cockcroft-Gault) 71.7 71.7 Glucose Level 91 mg/dL (70-99) 106 mg/dL (70-99) Lactic Acid Level 1.0 mmol/L (0.4-2.0) Calcium Level 7.8 mg/dL (8.5-10.1) 8.3 mg/dL (8.5-10.1) Magnesium Level 2.1 mg/dL (1.8-2.4) 2.2 mg/dL (1.8-2.4) Creatine Kinase 1326 U/L (26-192) Triglycerides Level 33 mg/dL (0-150) Cholesterol Level 197 mg/dL (0-200) LDL Cholesterol, Calculated 79 mg/dL (0-100) VLDL Cholesterol, Calculated 7 mg/dL (0-40) Non-HDL Cholesterol Calculated 86 mg/dL (0-129) HDL Cholesterol 111 mg/dL (40-60) Cholesterol/HDL Ratio 1.8 Thyroid Stimulating Hormone (TSH) 0.468 uIU/mL (0.358-3.74) Glucose (Fingerstick) 119 mg/dL (70-99) 99 mg/dL (70-99) Microbiology Micro Microbiology 04/16/20 Blood Culture - Preliminary, Resulted NO GROWTH AFTER 1 DAY Physical Exam HEENT: Neck Supple W Full Motion Chest: Symmetric LUNGS: Clear to Auscultation Heart: S1S2, RRR (SR no ectopies) Abdomen: Soft N/T Extremities: No Calf Tenderness Neurology: alert, follow commands, confused Assessment Assessment 1. Possible fall and syncope: noted with right facial contusion. unclear as pt was discovered next to furniture. 2. Rhabdomyolysis: due to above. now at 1528 3. Elevated troponin no cardiac symptoms mild at 0.1 EKG SR without acute changes, possibly type 2. EF and WM nml no significant valvular issues 4. Metabolic encephalopathy with underlying alzheimers dementia : mentation back to baseline 5. Accelerated HTN: controlled 6. Lactic acidosis: possibly from dehydration/rhabdo 7. Hx of DM2: diet controlled Recommendations Continue norvasc. Push fluids I discussed with her son in regards to cardiac workup moving forward. Her baseline function remains adequate for her age accdg to her son and is wanting further workup for her mother. Will obtain outpt stress test and also MCOT for 2 weeks then follow up in our office. Follow up with Dr. Keith on May 15 at 9:30 AM Justicifation of Admission Dx: Justifications for Admission: Justification of Admission Dx: Yes Hypertension: Cres[place] Worsening of Sym ASHWINI GAMBOA APRN Apr 18, 2020 08:53
[2020-04-18 11:15] VITALS: BP 130/86
[2020-04-18] MEDS ORDERED: POTASSIUM BICARB 20 MEQ EFFERVESCENT TABLET. PO ONE (11:45)
[2020-04-18] MEDS ORDERED: IV NORMAL SALINE 1000ML BAG 1,000 ML IV ONE (12:30)
[2020-04-18] MEDS ORDERED: POTA10TA12 PO (13:38)
--- NOTE | 2020-04-18 13:40 | SNU/HH DC ---
DISCHARGE WITH HOME HEALTH DISCHARGE INFORMATION: Discharge Date: Apr 18, 2020 Final Diagnosis: Problems Medical Problems: (1) Altered mental status Status: Acute (2) Elevated troponin Status: Acute Condition on Discharge: Stable CODE STATUS: Code Status: DNR/DNI HOME HEALTH: Face to Face: I certify this patient is under my care and that I, or a nurse practitioner or physician's clinical lab assistant working with me, had a face to face encounter that meets the physician face to face encounter requirements with this patient on 04/18/2020. Medical Complications: Falls, HTN Fpc For: Assess Cardiopulm Status, Assess & Educate Safety, Assess/Skilled Observatio, Medication Management RN For Eval/Treatment: Yes Physical Therapy For: Evalulation/Treatment Occupational Therapy For: Evaluation/Treatment Home Health Aide For: Self-care Pt Meets Homebound Status: Fatigue w/ amb., Frequent falls w/ injury, Limited distance walking POST DISCHARGE ORDERS: Activity Instructions for Disc: No restrictions Weight Bearing Status after Di: No restrictions DIET AFTER DISCHARGE: Cardiac Wound/Incision Care: No wound care needed CHECKS AFTER DISCHARGE: Checks after discharge: Check blood press - daily, Check your Temp as needed, Weigh Yourself Daily FOLLOW-UP: Follow up with: Follow up with Dr. Keith on May 15 at 9:30 AM for outpatient TREATMENT/EQUIPMENT ORDERS: Adaptive Equipment Issued: None CERTIFICATION STATEMENT: Certification Statement: Certification Statement: Based on the above finding, I certify that this patient is confined to the home and needs intermittent chcf care, physical therapy and/or speech therapy, or continues to need occupational therapy.~ This patient is under my care, and I have initiated the establishment of the plan of care.~ This patient will be followed by myself or a community physician who will periodically review the plan of care. Home Meds Active Scripts Potassium Chloride (POTASSIUM CHLORIDE ) 10 Meq Tab.sr.24h, 10 MEQ PO DAILY for SUPPLEMENT for 7 Days, #7 TAB.SR Prov:VIRIDIANA FUNEZ MD 04/18/20 Reported Medications Omeprazole (OMEPRAZOLE) 20 Mg Tablet.dr, 1 TAB PO DAILY for gerd, #90 TAB 1 Refill 04/16/20 Amlodipine Besylate (AMLODIPINE BESYLATE) 5 Mg Tablet, 5 MG PO DAILY for htn, TAB 04/16/20 Cholecalciferol (Vitamin D3) (VITAMIN D) 2,000 Unit Capsule, 5000 UNIT PO 07/19/15 Discontinued Reported Medications Ibuprofen (IBUPROFEN) 600 Mg Tablet, 600 MG PO DAILY PRN for INFLAMMATION, TAB 04/16/20 VIRIDIANA FUNEZ MD Apr 18, 2020 13:40
--- NOTE | 2020-04-18 13:44 | PDOC3 ---
Discharge Summary Visit Information Date of Admission: Apr 16, 2020 Date of Discharge: Apr 18, 2020 Admitting Diagnosis: Acute encephalopathy Final Diagnosis Problems Medical Problems: (1) Altered mental status Status: Acute (2) Elevated troponin Status: Acute Brief Hospital Course Allergies Allergies Coded Allergies Type Severity Reaction Last Updated Verified No Known Drug Allergies 07/19/15 No Vital Signs Vital Signs Date Time Temp Pulse Resp B/P (MAP) Pulse Ox O2 Delivery O2 Flow Rate FiO2 04/18/20 11:15 98.0 78 18 130/86 (101) 96 Room Air 98.0 Lab Results Laboratory Tests Test 04/16/20 17:15 04/16/20 17:28 04/16/20 17:40 04/16/20 23:30 White Blood Count 10.2 x10^3/uL (4.0-11.0) Red Blood Count 4.52 x10^6/uL (3.50-5.40) Hemoglobin 14.1 g/dL (12.0-15.5) Hematocrit 42.0 % (36.0-47.0) Mean Corpuscular Volume 93 fL (79-100) Mean Corpuscular Hemoglobin 31 pg (25-35) Mean Corpuscular Hemoglobin Concent 34 g/dL (31-37) Red Cell Distribution Width 13.8 % (11.5-14.5) Platelet Count 214 x10^3/uL (140-400) Neutrophils (%) (Auto) 78 % (31-73) Lymphocytes (%) (Auto) 12 % (24-48) Monocytes (%) (Auto) 9 % (0-9) Eosinophils (%) (Auto) 0 % (0-3) Basophils (%) (Auto) 1 % (0-3) Neutrophils # (Auto) 8.0 x10^3/uL (1.8-7.7) Lymphocytes # (Auto) 1.2 x10^3/uL (1.0-4.8) Monocytes # (Auto) 0.9 x10^3/uL (0.0-1.1) Eosinophils # (Auto) 0.0 x10^3/uL (0.0-0.7) Basophils # (Auto) 0.1 x10^3/uL (0.0-0.2) Lactic Acid Level 2.3 mmol/L (0.4-2.0) 1.9 mmol/L (0.4-2.0) Urine Collection Type U cath Urine Color Yellow Urine Clarity Clear Urine pH 5.5 (<5.0-8.0) Urine Specific [place] 1.010 (1.000-1.030) Urine Protein Negative mg/dL (NEG-TRACE) Urine Glucose (UA) Negative mg/dL (NEG) Urine Ketones (Stick) Negative mg/dL (NEG) Urine Blood Moderate (NEG) Urine Nitrite Negative (NEG) Urine Bilirubin Negative (NEG) Urine Urobilinogen Dipstick 0.2 mg/dL (0.2 mg/dL) Urine Leukocyte Esterase Negative (NEG) Urine RBC Rare /HPF (0-2) Urine WBC Occ /HPF (0-4) Urine Squamous Epithelial Cells Mod /LPF Urine Transitional Epithelial Cells Occ /LPF Urine Bacteria Few /HPF (0-FEW) Urine Mucus Marked /LPF Sodium Level 140 mmol/L (136-145) Potassium Level 3.4 mmol/L (3.5-5.1) Chloride Level 105 mmol/L (98-107) Carbon Dioxide Level 27 mmol/L (21-32) Anion Gap 8 (6-14) Blood Urea Nitrogen 9 mg/dL (7-20) Creatinine 1.0 mg/dL (0.6-1.0) Estimated GFR (Cockcroft-Gault) 63.5 BUN/Creatinine Ratio 9 (6-20) Glucose Level 129 mg/dL (70-99) Calcium Level 8.2 mg/dL (8.5-10.1) Total Bilirubin 0.3 mg/dL (0.2-1.0) Aspartate Amino Transf (AST/SGOT) 30 U/L (15-37) Alanine Aminotransferase (ALT/SGPT) 23 U/L (14-59) Alkaline Phosphatase 51 U/L (46-116) Creatine Kinase 676 U/L (26-192) Troponin I Quantitative 0.127 ng/mL (0.000-0.055) 0.114 ng/mL (0.000-0.055) BF-Uon-U-Type Natriuretic Peptide 561 pg/mL (0-449) Total Protein 7.4 g/dL (6.4-8.2) Albumin 3.1 g/dL (3.4-5.0) Albumin/Globulin Ratio 0.7 (1.0-1.7) Lipase 69 U/L (73-393) Test 04/17/20 03:00 04/17/20 04:15 04/17/20 10:10 04/17/20 21:10 Troponin I Quantitative 0.109 ng/mL (0.000-0.055) 0.099 ng/mL (0.000-0.055) White Blood Count 7.3 x10^3/uL (4.0-11.0) Red Blood Count 4.15 x10^6/uL (3.50-5.40) Hemoglobin 12.9 g/dL (12.0-15.5) Hematocrit 38.5 % (36.0-47.0) Mean Corpuscular Volume 93 fL (79-100) Mean Corpuscular Hemoglobin 31 pg (25-35) Mean Corpuscular Hemoglobin Concent 34 g/dL (31-37) Red Cell Distribution Width 14.1 % (11.5-14.5) Platelet Count 182 x10^3/uL (140-400) Neutrophils (%) (Auto) 68 % (31-73) Lymphocytes (%) (Auto) 20 % (24-48) Monocytes (%) (Auto) 12 % (0-9) Eosinophils (%) (Auto) 0 % (0-3) Basophils (%) (Auto) 1 % (0-3) Neutrophils # (Auto) 5.0 x10^3/uL (1.8-7.7) Lymphocytes # (Auto) 1.4 x10^3/uL (1.0-4.8) Monocytes # (Auto) 0.8 x10^3/uL (0.0-1.1) Eosinophils # (Auto) 0.0 x10^3/uL (0.0-0.7) Basophils # (Auto) 0.1 x10^3/uL (0.0-0.2) Sodium Level 144 mmol/L (136-145) Potassium Level 3.4 mmol/L (3.5-5.1) Chloride Level 109 mmol/L (98-107) Carbon Dioxide Level 29 mmol/L (21-32) Anion Gap 6 (6-14) Blood Urea Nitrogen 7 mg/dL (7-20) Creatinine 0.9 mg/dL (0.6-1.0) Estimated GFR (Cockcroft-Gault) 71.7 Glucose Level 91 mg/dL (70-99) Lactic Acid Level 1.0 mmol/L (0.4-2.0) Calcium Level 7.8 mg/dL (8.5-10.1) Magnesium Level 2.1 mg/dL (1.8-2.4) Creatine Kinase 1326 U/L (26-192) Triglycerides Level 33 mg/dL (0-150) Cholesterol Level 197 mg/dL (0-200) LDL Cholesterol, Calculated 79 mg/dL (0-100) VLDL Cholesterol, Calculated 7 mg/dL (0-40) Non-HDL Cholesterol Calculated 86 mg/dL (0-129) HDL Cholesterol 111 mg/dL (40-60) Cholesterol/HDL Ratio 1.8 Thyroid Stimulating Hormone (TSH) 0.468 uIU/mL (0.358-3.74) Glucose (Fingerstick) 119 mg/dL (70-99) Test 04/18/20 07:25 04/18/20 07:43 04/18/20 11:52 Sodium Level 141 mmol/L (136-145) Potassium Level 3.6 mmol/L (3.5-5.1) Chloride Level 105 mmol/L (98-107) Carbon Dioxide Level 31 mmol/L (21-32) Anion Gap 5 (6-14) Blood Urea Nitrogen 8 mg/dL (7-20) Creatinine 0.9 mg/dL (0.6-1.0) Estimated GFR (Cockcroft-Gault) 71.7 Glucose Level 106 mg/dL (70-99) Calcium Level 8.3 mg/dL (8.5-10.1) Magnesium Level 2.2 mg/dL (1.8-2.4) Creatine Kinase 1528 U/L (26-192) Glucose (Fingerstick) 99 mg/dL (70-99) 91 mg/dL (70-99) Laboratory Tests Test 04/17/20 21:10 04/18/20 07:25 04/18/20 07:43 04/18/20 11:52 Glucose (Fingerstick) 119 mg/dL (70-99) 99 mg/dL (70-99) 91 mg/dL (70-99) Sodium Level 141 mmol/L (136-145) Potassium Level 3.6 mmol/L (3.5-5.1) Chloride Level 105 mmol/L (98-107) Carbon Dioxide Level 31 mmol/L (21-32) Anion Gap 5 (6-14) Blood Urea Nitrogen 8 mg/dL (7-20) Creatinine 0.9 mg/dL (0.6-1.0) Estimated GFR (Cockcroft-Gault) 71.7 Glucose Level 106 mg/dL (70-99) Calcium Level 8.3 mg/dL (8.5-10.1) Magnesium Level 2.2 mg/dL (1.8-2.4) Creatine Kinase 1528 U/L (26-192) Brief Hospital Course Ms Larson is a 89 yo F w/ PMHx hypertension, Alzheimers dementia, prior left thalamic CVA who presents to [facility] ED on 04/16 with a chief complaint of altered mental status per son. Son states he checked on the patient approximate 4 hours prior to arrival. He states he found her at home slumped over her bed railing. He states that the daughter does live with the patient 07/03. He states the patient's last known well was approximately 10 hours prior to arrival. He is unsure whether she had any falls or head trauma but does note some right maxillary swelling. States that she seems more confused than normal, but did not have any pain complaints. He denies history of urinary tract infections. States she only takes medicine for high blood pressure. States she does normally ambulate on her own. Denies fevers. Denies cough. Denies known exposure to coronavirus. Denies any history of stroke. No other complaints per patient son at this time. EKG appears normal sinus rhythm. Ventricular rate is 74 bpm. [place] normal. Flipped T waves noted in the precordial leads. No ST segment elevation appreciated. No elevation in aVR. Similar to previous EKG from July 19, 2015. Labs significant for WBC 10.2, Hb 14.1, platelets 214, lactic acid 2.3, NA 140, K3.4, BUN 9, CR 1, glucose 129, CK 676, BNP 561, albumin 3.1, troponin 0.127. UA bland Admitted for further treatment. 04/17: Seen by cardiology, ECHO: The left ventricle is normal size. The left ventricular systolic function is normal and the ejection fraction is within normal range. The Ejection Fraction is 60-65%. There is mild concentric left ventricular hypertrophy. Doppler and Color Flow revealed no significant aortic regurgitation. There is no significant aortic valvular stenosis. Doppler and Color-flow revealed trace to mild mitral regurgitation. Doppler and Color Flow revealed trace tricuspid valve regurgitation. Troponin peaked, came down to 0.099. CK 1528, K 3.4. Working well with physical therapy. Consults: Cardiology Problem list: Acute metabolic encephalopathy - likely from metabolic derangement, no UTI or other abnormalities Elevated troponin - likely demand ischemia from above. Will trend. Cardiology consulted in ED. No STEMI. On heparin GTT Lactic acid elevated - will trend Hypokalemia - will correct, check mag Elevated CPK - will hydrate Remote left thalamic CVA - family not aware of prior CVA Alzheimers dementia - not on meds HTN - cont home meds Greater than 30 minutes spent on d/c home with home health plan: Follow up with Dr. Keith on May 15 at 9:30 AM for outpatient stress testing. Discharge Information Condition at Discharge: Improved Follow Up: Weeks (1) Disposition/Orders: D/C to Home w/ HH Scheduled Amlodipine Besylate (Amlodipine Besylate) 5 Mg Tablet, 5 MG PO DAILY for htn, (Reported) Entered as Reported by: NAKUL WHATLEY on 04/16/202333 Last Action: Continued on 04/17/20 1300 by VIRIDIANA FUNEZ MD Omeprazole (Omeprazole) 20 Mg Tablet.dr, 1 TAB PO DAILY for gerd, #90 Ref 1 (Re ported) Entered as Reported by: NAKUL WHATLEY on 04/16/202333 Last Action: Converted on 04/17/20 1300 by VIRIDIANA FUNEZ MD Potassium Chloride (Potassium Chloride ) 10 Meq Tab.sr.24h, 10 MEQ PO DAILY for SUPPLEMENT for 7 Days, #7 Prescribed by: VIRIDIANA FUNEZ MD on 04/18/20 1338 Miscellaneous Medications Cholecalciferol (Vitamin D3) (Vitamin D) 2,000 Unit Capsule, 5,000 UNIT PO, (Reported) Entered as Reported by: PAUL TAPIA on 07/19/15 1907 Last Action: Converted on 04/17/20 1300 by VIRIDIANA FUNEZ MD Discontinued Medications Ibuprofen (Ibuprofen) 600 Mg Tablet, 600 MG PO DAILY PRN for INFLAMMATION, (Reported) Entered as Reported by: NAKUL WHATLEY on 04/16/20 5474 Last Action: HELD on 04/17/20 1300 by VIRIDIANA FUNEZ MD Justicifation of Admission Dx: Justifications for Admission: Justification of Admission Dx: Yes Hypertension: [place] Worsening of Sym VIRIDIANA FUNEZ MD Apr 18, 2020 13:44
[2020-04-18 15:00] VITALS: BP 151/91
--- NOTE | 2020-04-18 15:32 | NUR ---
SW following. Spoke with RN and reviewed chart. Pt from home with 24 hour care from family. Spoke with pt's son Yann ([phone]) who would like [facility] on discharge. SW completed referral to [place] at [facility]. Patient choice of vendor form completed. No further SW needs at this time.
--- NOTE | 2020-04-18 19:18 | NUR ---
pt discharged home with family. meds and follow up reviewed. pt stable upon dc. IV removed, cath intact.
== END 2020-04-18 18:00 | disposition home health service (06) | DRG 71 ==
LOC: ER 16:17 → ED HOLD 20:03 → 5 NORTH 20:18
PROVIDERS: ADMIT Internal Medicine; ATTEND Internal Medicine
DX: G93.41 Metabolic encephalopathy (principal); E87.2 Acidosis; M62.82 Rhabdomyolysis; N39.0 Urinary tract infection, site not specified; I24.8 Other forms of acute ischemic heart disease; E11.9 Type 2 diabetes mellitus without complications; E86.0 Dehydration; E87.6 Hypokalemia; F02.80 Dementia in other diseases classified elsewhere, unspecified severity, without behavioral disturbance, psychotic disturbance, mood disturbance, and anxiety; G30.9 Alzheimer's disease, unspecified; I10 Essential (primary) hypertension; J45.909 Unspecified asthma, uncomplicated; Z66 Do not resuscitate; Z82.49 Family history of ischemic heart disease and other diseases of the circulatory system; Z86.73 Personal history of transient ischemic attack (TIA), and cerebral infarction without residual deficits; Z90.710 Acquired absence of both cervix and uterus; F32.9 Major depressive disorder, single episode, unspecified; H40.9 Unspecified glaucoma; K21.9 Gastro-esophageal reflux disease without esophagitis; M19.90 Unspecified osteoarthritis, unspecified site
CPT/HCPCS: 36415; 70450; 71045; 80048; 80053; 80061; 81001; 82550; 82962; 83605; 83690; 83735; 83880; 84443; 84484; 85025; 87040; 93005; 93306; 96360; J1644; J3490; J7030; 97116-GP; 97530-GP; 97535-GO; 99285-25; G0378

== ENCOUNTER → 2020-05-01 | Outpatient (CLI) | payer MEDICARE ==
[2020-04-18 11:15] VITALS: BP 130/86
[~2020-05-01] MED LIST changes: +AMLO5TAB10 PO; +IBUP-1007 PO; +OMEP20TA8 PO; +POTA10TA12 PO; +REGADENOSON 0.4 MG/5 ML DISP.SYRIN. IV ONE
--- NOTE | 2020-05-01 12:48 | RAD ---
MR#: [id number] Date of Study: 05/01/2020 Ordering Physician: OLY DANGELO, Referring Physician: MARQUIS BAIRD Tech: JEAN Cat APPROVED REPORT Test Type: Pharmacological Stress Nurse/Tech: RAFI PAULINO Test Indications: SYNCOPE Cardiac History: SEE EMR Medications: SEE EMR Medical History: SEE EMR Resting ECG: SR Resting Heart Rate: 62 bpm Resting Blood Pressure: 172/64mmHg Pretest Chest Pain: No chest pain Nurse/Tech Notes S1,S2, LUNGS CTA, DENIED CP OR SOA. Consent: The procedure was explained to the patient in lay terms. Informed consent was witnessed. Yared eout was entered into [employer]. History and Stress Test performed by RT Douglas (R) (N) Pharm. Details Pharmacologic stress testing was performed using 0.4mg per 5ml of regadenoson given intravenously ove r 7-10 seconds. Stress Symptoms PT DENIED ANY SYMPTOMS DURING TESTING. VSS. POST EXERCISE Reason for Termination: Infusion complete Max HR: 88 bpm Max Blood Pressure: 188/63mmHg Blood Pressure response to exercise: Normal blood pressure response during stress. Heart Rate response to exercise: NORMAL HEART RATE RESPONSE DURING STRESS Chest Pain: No. Arrhythmia: No. NO SIGNIFICANT CHANGES NOTED FROM BASELINE EKG. ST Change: No. INTERPRETATION Stress EKG Conclusion: Baseline EKG showed sinus rhythm. No ischemic changes at peak stress. No arr hythmias. Imaging Protocol IMAGE PROTOCOL: Rest Tc-99m/stress Tc-99m 1 day Rest: Stress: Viability: Radiopharm.Tc99m [id number] Sestamibi Dose10.7mCi 32.1mCi Duration 15min. 10min. Img Date 05/01/2020 05/01/2020 Inj-Img [id number]. 60min. Rest Admin Site:IV - Right AntecubitalAdministrator:NIURKA Genao, ARRT (R)(N) Stress Admin Site: IV - Right AntecubitalAdministrator: RT Douglas (R)(N) STRESS DATA End Diast. Vol.34.0mlAv. Heart Rate67.0bpm End Syst. Vol.4.0mlCO Index BSA0.0L/min Myocardial Mass76.0gEject. Ynxfrghy94.0% Stress Rates Pk. Fill Rate2.91EDV/secLVtime Pk. Fill 165.55msec Pk. Empty Rate4.24ESV/secLVtime Pk. Qyqba191.50msec 1/3 Pk. Fill1.59EDV/sec Stress Scores Regional WT0.00Summed WT0.00 Regional WM0.00Summed WM1.00 Study quality was good. Left Ventricular size was Normal at Rest and Stress. Lung uptake was . Left Ventricular ejection fraction is 77%. The rest and stress images show normal perfusion, normal contraction and thickening. LV Perf. Quant 17 Seg. SSS0.00 17 Seg. SRS3.00 17 Seg. SDS0.00 Stress Defect Extent (% LAD)0.00Rest Defect Extent (% LAD)0.00Rev. Defect Extent (% LAD)0.00 Stress Defect Extent (% LCX) 0.00Rest Defect Extent (% LCX)28.80Rev. Defect Extent (% LCX)0.00 Stress Defect Extent (% RCA)0.00Rest Defect Extent (% RCA)0.00Rev. Defect Extent (% RCA)0.00 Stress Defect Extent (% CUAUHTEMOC)0.00Rest Defect Extent (% CUAUHTEMOC)5.00Rev. Defect Extent (% CUAUHTEMOC)0.00 Conclusion 1. Regadenoson cardioisotope stress test did not show any evidence of ischemia or infarct. 2. Normal left ventricular systolic function with ejection fraction calculated at 77%. 3. Low risk for cardiac events. Signed by : Gonzalez Horowitz, Electronically Approved : 05/01/2020 12:48:06
== END | disposition home or self-care (01) ==
LOC: NM 08:13
PROVIDERS: ATTEND Internal Medicine Cardiovascular Disease
DX: R55 Syncope and collapse (principal)
CPT/HCPCS: 78452; 93017; A9500; J2785